=== PATIENT | male | born 1955 | race Caucasian/White ===

== ENCOUNTER 2017-05-21 10:09 | Inpatient (IN) | payer MEDICARE ==
[~2017-05-21] VITALS: Ht 170.2 cm; Wt 68.0 kg
[~2017-05-21 10:09] MED LIST: ASPI-110 PO; ATOR40TA16 PO; CARV6.252 PO; DILA4TAB2 PO; LANTUS2P SQ; LIPI40TA PO; METF500T PO; MORP1TAB26 PO; NITR1SUB3 SL; PLAV75TA29 PO; VENL75TA PO
[2017-05-21 10:59] LABS: AUTOMATED NEUTROPHIL # 5.4 TH/MM3 (1.8-7.7); BASOPHIL # 0.1 TH/MM3 (0-0.2); BASOPHIL % 1.2 % (0.0-2.0); EOSINOPHIL # 0.4 TH/MM3 (0-0.4); HEMO FLAGS DIFF FINAL; LYMPH % 34.9 % (9.0-44.0); LYMPHOCYTE # 3.4 TH/MM3 (1.0-4.8); MEAN CELL VOLUME 86.2 FL (80.0-100.0); MEAN CORPUSCULAR HEMOGLOBIN 28.4 PG (27.0-34.0); MONO % 5.2 % (0.0-8.0); NEUT % 54.7 % (16.0-70.0); PLATELET COUNT 245 TH/MM3 (150-450); RED BLOOD COUNT 5.34 MIL/MM3 (4.50-5.90); RED CELL DISTRIBUTION WIDTH 16.2 % (11.6-17.2); WHITE BLOOD COUNT 9.8 TH/MM3 (4.0-11.0)
[2017-05-21 11:06] LABS: INTERNATIONAL NORMALIZED RATIO 0.9 RATIO; PROTHROMBIN TIME - PATIENT 10.4 SEC (9.8-11.6)
[2017-05-21] MEDS ORDERED: SODIUM CHLORID 0.9% 500 ML IV PRN (11:15)
[2017-05-21] MEDS ORDERED: POVIDONE IODINE 5% (ANTISEPSIS KIT) 4 APPLICATIONS EACH NARE PRN (11:15)
[2017-05-21] MEDS ORDERED: LACTATED RINGER'S 1000 ML IV PRN (11:15)
[2017-05-21] MEDS ORDERED: INSULIN HUMAN REGULAR 1,000 UNITS/10 ML VIAL SQ PRN (11:15)
[2017-05-21] MEDS ORDERED: CHLORHEXIDINE GLUCONATE 2 % 1 PACK (2 CLOTHS) TOPICAL PRN (11:15)
[2017-05-21] MEDS ORDERED: METOPROLOL TARTRATE 25 MG TAB PO PRN (11:15)
[2017-05-21] MEDS ORDERED: MIDAZOLAM HCL 2 MG/2 ML VIAL ONE (11:16)
[2017-05-21] MEDS ORDERED: FAMOTIDINE 20 MG/2 ML VIAL ONE (11:17)
[2017-05-21] MEDS ORDERED: HYDROmorphone HCL PF 2 MG/ML VIAL ONE (11:17)
[2017-05-21 11:20] LABS: BICARBONATE 27.6 MEQ/L (21.0-32.0); POTASSIUM 4.2 MEQ/L (3.5-5.1)
--- NOTE | 2017-05-21 11:21 | RADRPT ---
EXAM DATE/TIME: 05/21/2017 10:38 [place] COMPARISON: No previous studies available for comparison. INDICATIONS : Evaluate for pneumonia, pneumothorax, or communicable disease. Pre op for right leg surgery. MEDICAL HISTORY : Hypertension. Diabetes mellitus type II. Myocardial infarction. SURGICAL HISTORY : Pain stimulator. Stent. ENCOUNTER: Initial ACUITY: 1 day PAIN SCORE: 0/10 LOCATION: Bilateral chest FINDINGS: A single view of the chest demonstrates the lungs to be symmetrically aerated without evidence of mas s, infiltrate or effusion. The cardiomediastinal contours are unremarkable. Osseous structures are intact. Stimulation electrodes project over the lower cervical region. CONCLUSION: The lungs are clear. Bryce Harris MD on May 21, 2017 at 11:19 Board Certified Radiologist. This report was verified electronically.
[2017-05-21] MEDS ORDERED: ceFAZolin 2 GM PREMIX 50 ML ONE (11:25)
--- NOTE | 2017-05-21 11:29 | PD.VS.PN ---
Pre-operative Note Pre-operative diagnosis: Open R BKA Planned procedure: R BKA revision Interval History: Pt has been feeling well since I saw him in clinic Fri. No F/C. Ready for surgery Labs: Laboratory Results Test 05/21/17 10:50 Anion Gap 5 MEQ/L (5-15) Blood Urea Nitrogen 16 MG/DL (7-18) Creatinine 0.60 MG/DL (0.60-1.30) Random Glucose 182 MG/DL (74-106) Calcium Level 8.8 MG/DL (8.5-10.1) Sodium Level 134 MEQ/L (136-145) Potassium Level 4.2 MEQ/L (3.5-5.1) Chloride Level 101 MEQ/L (98-107) Carbon Dioxide Level 27.6 MEQ/L (21.0-32.0) Hematocrit 46.0 % (39.0-51.0) Hemoglobin 15.2 GM/DL (13.0-17.0) Mean Corpuscular Hemoglobin 28.4 PG (27.0-34.0) Mean Corpuscular Hemoglobin Concent 33.0 % (32.0-36.0) Mean Corpuscular Volume 86.2 FL (80.0-100.0) Mean Platelet Volume 7.0 FL (7.0-11.0) Platelet Count 245 TH/MM3 (150-450) Prothromb Time International Ratio 0.9 RATIO Red Blood Count 5.34 MIL/MM3 (4.50-5.90) Red Cell Distribution Width 16.2 % (11.6-17.2) White Blood Count 9.8 TH/MM3 (4.0-11.0) Blood: T&S Imaging: Last Impressions Chest X-Ray 05/21/17 0000 Signed Impressions: Service Date/Time: Sunday, May 21, 2017 10:38 - CONCLUSION: The lungs are clear. Bryce Harris MD Orders: NPO Ancef 2g IV OCTOR Post-operative destination: PACU Operative site marked: Yes Consent: Informed consent has been obtained from Radames Fox. I have explained the procedure in detail and discussed the risks, benefits, and potential complications. All questions have been answered. Patient contact information: [place] () [phone] Darshan Lopez MD May 21, 2017 11:29
[2017-05-21] MEDS ORDERED: KETAMINE HCL 500 MG/5 ML VIAL ONE (11:41)
[2017-05-21] MEDS ORDERED: ONDANSETRON HCL 4 MG/2 ML VIAL IV PUSH ONE (12:00)
[2017-05-21] MEDS ORDERED: PROPOFOL 200 MG/20 ML AMP IV ONE (12:00)
[2017-05-21] MEDS ORDERED: PHENYLEPH/NS 1000 MCG/10 ML SYR IV ONE (12:00)
--- NOTE | 2017-05-21 12:25 | HHI.PR ---
Immediate Post Op Note Procedure Date: May 21, 2017 Pre Op Diagnosis: open R BKA Post Op Diagnosis: open R BKA Surgeon: Darshan Lopez Asset Protection Agent(s): Heydi Montoya Procedure: R BKA revision Findings: no infection Complications: none Specimen(s) removed: none for pathology Estimated blood loss: 50mL Anesthesia: General Drains: None Fluids: 850mL IVF Patient to: PACU Patient Condition: Good Date/Time of Procedure: SEE SURGICAL CARE RECORD Darshan Lopez MD May 21, 2017 12:25
[2017-05-21] MEDS ORDERED: DEXTROSE 50% IN WATER 50 ML VIAL(D50) IV PRN (12:30)
[2017-05-21] MEDS ORDERED: NITROGLYCERIN 0.4 MG SL 25 TABS/BTL SL PRN (12:30)
[2017-05-21] MEDS ORDERED: GLUCAGON 1 MG/ML VIAL OTHER PRN (12:30)
[2017-05-21] MEDS ORDERED: DO NOT ADM ANY ANTICOAGULANT DRUGS PRN (12:39)
[2017-05-21] MEDS ORDERED: *morphine SULFATE 8 MG/ML PERIprocedure ONLY ONE ×3 (12:51→13:34)
[2017-05-21] MEDS: ENOXAPARIN SODIUM 30 MG/0.3 ML SYRINGE SQ SCH (13:00)
[2017-05-21] MEDS ORDERED: *LABETALOL HCL 100 MG/20 ML VIAL PERIprocedural Use ONLY ONE (13:02)
[2017-05-21] MEDS ORDERED: *HYDROmorphone PF 1 MG VIAL PERIprocedural Use ONLY ONE (14:13)
--- NOTE | 2017-05-21 14:29 | EKG ---
Date Performed: 05/21/2017 Time Performed: 10:49:12 PTAGE: 61 years EKG: Sinus rhythm NORMAL ECG Compared to prior tracing no significant change PREVIOUS TRACING : 03/31/2007 21.20 DOCTOR: Praveen Montoya Interpretating Date/Time 05/21/2017 14:28:52
[2017-05-21 16:00] VITALS: BP 136/78; PULSE 91; RESP 17; TEMP 98.2; O2SAT 96
[2017-05-21] MEDS: INSULIN ASPART SUPPLEMENTAL SCALE SQ SCH ×2 (16:00→21:00)
[2017-05-21] MEDS: HYDROmorphone HCL 2 MG TAB PO PRN ×2 (16:01→21:05)
[2017-05-21] MEDS ORDERED: NICOTINE 21 MG/24 HR PATCH T-DERMAL ONE (18:30)
[2017-05-21] MEDS: metFORMIN HCL 500 MG TAB PO SCH (19:11)
[2017-05-21] MEDS: MORPHINE SULFATE 4 MG/ML INJ IV PRN ×2 (19:12→21:19)
[2017-05-21] MEDS ORDERED: traZODone HCL 50 MG TAB PO PRN (19:45)
[2017-05-21 20:26] VITALS: O2SAT 96
[2017-05-21] MEDS: ATORVASTATIN 40 MG TAB PO SCH (21:06)
[2017-05-21] MEDS: CARVEDILOL 6.25 MG TAB PO SCH (21:06)
[2017-05-21] MEDS: MORPHINE SULFATE 60 MG CONTROLLED RELEASE TAB PO SCH (22:51)
[2017-05-21 23:00] VITALS: PULSE 97
[2017-05-22] VITALS (7 sets, daily range): BP systolic 83–164; BP diastolic 52–78; PULSE 81–90; RESP 18–20; TEMP 96.8–98.8; O2SAT 94–97
[2017-05-22] MEDS: HYDROmorphone HCL 2 MG TAB PO PRN ×3 (03:04→14:27)
[2017-05-22] MEDS: MORPHINE SULFATE 4 MG/ML INJ IV PRN ×3 (05:46→18:55)
[2017-05-22] MEDS: INSULIN ASPART SUPPLEMENTAL SCALE SQ SCH ×4 (07:00→21:00)
[2017-05-22 07:11] LABS: HEMATOCRIT 43.2 % (39.0-51.0); MEAN CELL VOLUME 87.3 FL (80.0-100.0); MEAN CORPUSCULAR HEMOGLOBIN 28.8 PG (27.0-34.0); PLATELET COUNT 211 TH/MM3 (150-450); RED BLOOD COUNT 4.95 MIL/MM3 (4.50-5.90); RED CELL DISTRIBUTION WIDTH 15.8 % (11.6-17.2); REVIEW FLAG FINAL; WHITE BLOOD COUNT 9.2 TH/MM3 (4.0-11.0)
[2017-05-22 07:34] LABS: BICARBONATE 31.7 MEQ/L (21.0-32.0); POTASSIUM 3.5 MEQ/L (3.5-5.1)
[2017-05-22] MEDS: MORPHINE SULFATE 60 MG CONTROLLED RELEASE TAB PO SCH ×2 (08:43→21:00)
[2017-05-22] MEDS: CLOPIDOGREL 75 MG TAB PO SCH (08:43)
[2017-05-22] MEDS: ASPIRIN EC 81 MG TABEC PO SCH (08:44)
[2017-05-22] MEDS: CARVEDILOL 6.25 MG TAB PO SCH ×2 (08:44→20:59)
[2017-05-22] MEDS: VENLAFAXINE HCL 75 MG TAB PO SCH (08:44)
[2017-05-22] MEDS: metFORMIN HCL 500 MG TAB PO SCH ×2 (08:44→18:55)
--- NOTE | 2017-05-22 08:55 | MP ---
cc: VARINDER LOPEZ MD DATE OF SURGERY 05/21/2017 PREOPERATIVE DIAGNOSIS Open right below-knee amputation POSTOPERATIVE DIAGNOSIS Open right below-knee amputation PROCEDURE Right below-knee amputation revision SURGEON Varinder Lopez MD CORPORATE TECHNICAL RECRUITER SURGEON Heydi Montoya ANESTHESIA General MEDICATIONS Mr. Fox is a 61-year gentleman who has a right below-knee amputation. He had some trauma to the wound and presented to my clinic with an exposed bone. He is taken to the operating room for amputation revision. He and his understand full well this may ultimately result in an above-knee amputation. DESCRIPTION OF THE PROCEDURE Informed consent was obtained from the patient. The patient was taken to the operating room, placed supine on the operating table and an appropriate time-out was taken to ensure the patient's identity, operative site and planned procedure. Two grams of Ancef was initiated prior to the skin incision and will be discontinued after a single preoperative dose. Everyone in the room agreed with the time-out and we proceeded. His right leg was prepped and draped and his previous incision was opened with a 10 blade, carried down through the subcutaneous tissue with electrocautery. The bone, the periosteum and the tissue around the bone was then resected and the bone was freed up for several centimeters and then the distal aspect of the bone was resected with an oscillating saw. The anterior portion of the bone was beveled. The wound was then irrigated and closed with 2-0 Polysorb and 2-0 nylon vertical mattress sutures. The sponge and needle counts were correct at the end of the case. I was present and scrubbed and performed the entire procedure. MD BRANDON Boateng/BROCK /4:14 PM /8:37 AM
--- NOTE | 2017-05-22 11:40 | PD.VS.PN ---
Subjective POD #: 1 Procedure(s): R BKA revision Subjective/Hospital Course Afebrile 61/M Pt in bed alert in NAD Reported a painful night Pain controlled this am Dressing to R BKA I/C/D Objective Vitals/I&O Date Time Temp Pulse Resp B/P (MAP) Pulse Ox O2 Delivery O2 Flow Rate FiO2 05/22/17 09:49 96 05/22/17 08:00 98.5 84 18 114/60 (78) 96 05/22/17 04:00 98.8 84 18 83/52 (62) 97 05/22/17 00:00 98.6 88 20 164/78 (106) 95 05/21/17 23:00 97 05/21/17 20:26 96 21 05/21/17 16:00 98.2 91 17 136/78 (97) 96 05/21/17 15:15 98.3 92 13 142/79 (100) 96 Nasal Cannula 4 05/21/17 15:00 88 13 142/79 (100) 94 Nasal Cannula 4 05/21/17 14:45 95 20 152/79 (103) 95 05/21/17 14:30 85 11 155/76 (102) 92 05/21/17 14:15 90 11 151/76 (101) 93 05/21/17 14:00 85 10 161/72 (101) 94 05/21/17 13:45 84 13 157/69 (98) 95 05/21/17 13:30 85 18 180/83 (115) 99 Nasal Cannula 4 05/21/17 13:15 89 12 188/100 (129) 99 Nasal Cannula 4 05/21/17 13:00 90 14 195/103 (133) 99 Nasal Cannula 4 05/21/17 12:43 97.9 97 16 201/108 (139) 93 Nasal Cannula 4 05/22/17 05/22/17 05/22/17 07:00 15:00 23:00 Output Total 350 ml Balance -350 ml Exam: GENERAL: Afebrile 61/M A&OX3,NAD SKIN: Warm and dry/ dressing to R BKA intact, clean and dry CARDIOVASCULAR: RRR,+S1,S2 RESPIRATORY: BS CTA/No accessory muscle use. MUSCULOSKELETAL: No cyanosis, or edema. Laboratory Laboratory Tests Test 05/22/17 06:22 White Blood Count 9.2 Red Blood Count 4.95 Hemoglobin 14.3 Hematocrit 43.2 Mean Corpuscular Volume 87.3 Mean Corpuscular Hemoglobin 28.8 Mean Corpuscular Hemoglobin Concent 33.0 Red Cell Distribution Width 15.8 Platelet Count 211 Mean Platelet Volume 7.0 Blood Urea Nitrogen 7 Creatinine 0.57 Random Glucose 207 Calcium Level 8.6 Sodium Level 137 Potassium Level 3.5 Chloride Level 99 Carbon Dioxide Level 31.7 Anion Gap 6 Estimat Glomerular Filtration Rate 145 Assessment and Plan Assessment: (1) PAD (peripheral artery disease) Status: Chronic (2) BKA stump complication Status: Acute (3) Hx of right BKA Plan Afebrile 61/M with a hx of R BKA (1year ago) who bumped his R BKA stump 6W ago on a trailer hitch Pt with skin erosion and bone exposure. Pt s/p POD 1- revision R BKA Plan Continue pain management Continue PT D/C planning Melissa CADET [facility]/[place] [phone] Discharge Planning Tomorrow AM (home) Melissa Flor May 22, 2017 11:40
[2017-05-22] MEDS: ENOXAPARIN SODIUM 30 MG/0.3 ML SYRINGE SQ SCH (14:26)
[2017-05-22] MEDS: ATORVASTATIN 40 MG TAB PO SCH (20:59)
[2017-05-23] VITALS: BP 116/58; PULSE 84; RESP 18; TEMP 98.6; O2SAT 90
[2017-05-23] MEDS: MORPHINE SULFATE 4 MG/ML INJ IV PRN ×2 (00:01→09:54)
[2017-05-23] MEDS: INSULIN ASPART SUPPLEMENTAL SCALE SQ SCH (05:47)
[2017-05-23] MEDS: HYDROmorphone HCL 2 MG TAB PO PRN (05:51)
[2017-05-23] MEDS: MORPHINE SULFATE 60 MG CONTROLLED RELEASE TAB PO SCH (07:46)
[2017-05-23] MEDS: metFORMIN HCL 500 MG TAB PO SCH (07:47)
[2017-05-23] MEDS: ASPIRIN EC 81 MG TABEC PO SCH (07:48)
[2017-05-23] MEDS: CLOPIDOGREL 75 MG TAB PO SCH (07:50)
[2017-05-23] MEDS: VENLAFAXINE HCL 75 MG TAB PO SCH (07:51)
[2017-05-23 07:58] VITALS: PULSE 77
[2017-05-23] MEDS: CARVEDILOL 6.25 MG TAB PO SCH (07:58)
--- NOTE | 2017-05-23 08:37 | PD.VS.PN ---
Subjective POD #: 2 Procedure(s): R BKA revision Subjective/Hospital Course Afebrile 61/M Pt in bed alert in NAD Pain controlled this am Dressing to R BKA I/C/D Changed dressing this am Objective Vitals/I&O Date Time Temp Pulse Resp B/P (MAP) Pulse Ox O2 Delivery O2 Flow Rate FiO2 05/23/17 00:00 98.6 84 18 116/58 (77) 90 05/22/17 20:00 88 05/22/17 17:54 96.8 90 20 119/72 (88) 94 05/22/17 12:00 97.9 81 18 101/56 (71) 94 05/22/17 09:49 96 05/23/17 05/23/17 05/23/17 07:00 15:00 23:00 Output Total 450 ml Balance -450 ml Exam: GENERAL: A&OX3,NAD,GCS15 SKIN: Warm and dry/ R BKA intact with suture closure. No R/D/S present CARDIOVASCULAR: RRR, +S1,S2 RESPIRATORY: BS CTA Assessment and Plan Assessment: (1) PAD (peripheral artery disease) Status: Chronic (2) BKA stump complication Status: Acute (3) Hx of right BKA Plan Afebrile 61/M with a hx of R BKA (1year ago) who bumped his R BKA stump 6W ago on a trailer hitch Pt with skin erosion and bone exposure. Pt s/p POD 2- revision R BKA Plan Dressing changed Pt to be d/c today Arranged OP F/U Melissa CADET [facility]/[place] [phone] Discharge Planning Today (home) Melissa Flor May 23, 2017 08:37
--- NOTE | 2017-05-23 08:48 | PD.VS.DC ---
Discharge Summary Admission Date: May 21, 2017 at 10:09 Discharge Date: May 23, 2017 Admission Diagnosis: (1) PAD (peripheral artery disease) (2) BKA stump complication (3) Hx of right BKA Discharge Diagnosis: (1) PAD (peripheral artery disease) ICD Codes: I73.9 - Peripheral vascular disease, unspecified Status: Chronic (2) BKA stump complication ICD Codes: T87.9 - Unspecified complications of amputation stump Status: Acute (3) Hx of right BKA ICD Codes: Z89.511 - Acquired absence of right leg below knee Brief History from admission Afebrile 61/M with a hx of R BKA (1year ago) who bumped his R BKA stump 6W ago on a trailer hitch Pt with skin erosion and bone exposure. Procedure(s): R BKA revision Significant Findings GENERAL: A&OX3,NAD,GCS15 SKIN: Warm and dry/ R BKA intact with suture closure. No R/D/S present CARDIOVASCULAR: RRR, +S1,S2 RESPIRATORY: BS CTA Laboratory Tests Test 05/21/17 10:50 05/22/17 06:22 Random Glucose 182 MG/DL (74-106) 207 MG/DL (74-106) Sodium Level 134 MEQ/L (136-145) Creatinine 0.57 MG/DL (0.60-1.30) Hospital Course: Afebrile 61/M with a hx of R BKA (1year ago) who bumped his R BKA stump 6W ago on a trailer hitch Pt with skin erosion and bone exposure. S/P R BKA revision w/o complications Pt will f/U in our OPC in 2W Allergies Coded Allergies Type Severity Reaction Last Updated Verified acetaminophen Allergy Mild 05/21/17 No oxycodone Allergy Mild 05/21/17 No Recent Impressions Chest X-Ray 05/21/17 0000 Signed Impressions: Service Date/Time: Sunday, May 21, 2017 10:38 - CONCLUSION: The lungs are clear. Bryce Harris MD 9/6/17 05/21/17 05/22/17 05/22/17 05/23/17 05/23/17 06:00 18:00 06:00 18:00 06:00 18:00 Intake Total 1260 ml 480 ml Output Total 1275 ml 350 ml 400 ml 450 ml Balance -15 ml -350 ml 80 ml -450 ml Intake Oral 410 ml 480 ml Other 850 ml Output Urine Total 225 ml 350 ml 400 ml 450 ml Estimated Blood Loss 50 ml Other 1000 ml # Bowel Movements 0 Laboratory Tests Test 05/21/17 10:50 05/22/17 06:22 White Blood Count 9.8 TH/MM3 9.2 TH/MM3 Red Blood Count 5.34 MIL/MM3 4.95 MIL/MM3 Hemoglobin 15.2 GM/DL 14.3 GM/DL Hematocrit 46.0 % 43.2 % Mean Corpuscular Volume 86.2 FL 87.3 FL Mean Corpuscular Hemoglobin 28.4 PG 28.8 PG Mean Corpuscular Hemoglobin Concent 33.0 % 33.0 % Red Cell Distribution Width 16.2 % 15.8 % Platelet Count 245 TH/MM3 211 TH/MM3 Mean Platelet Volume 7.0 FL 7.0 FL Neutrophils (%) (Auto) 54.7 % Lymphocytes (%) (Auto) 34.9 % Monocytes (%) (Auto) 5.2 % Eosinophils (%) (Auto) 4.0 % Basophils (%) (Auto) 1.2 % Neutrophils # (Auto) 5.4 TH/MM3 Lymphocytes # (Auto) 3.4 TH/MM3 Monocytes # (Auto) 0.5 TH/MM3 Eosinophils # (Auto) 0.4 TH/MM3 Basophils # (Auto) 0.1 TH/MM3 CBC Comment DIFF FINAL Differential Comment Prothrombin Time 10.4 SEC Prothromb Time International Ratio 0.9 RATIO Blood Urea Nitrogen 16 MG/DL 7 MG/DL Creatinine 0.60 MG/DL 0.57 MG/DL Random Glucose 182 MG/DL 207 MG/DL Calcium Level 8.8 MG/DL 8.6 MG/DL Sodium Level 134 MEQ/L 137 MEQ/L Potassium Level 4.2 MEQ/L 3.5 MEQ/L Chloride Level 101 MEQ/L 99 MEQ/L Carbon Dioxide Level 27.6 MEQ/L 31.7 MEQ/L Anion Gap 5 MEQ/L 6 MEQ/L Estimat Glomerular Filtration Rate 137 ML/MIN 145 ML/MIN Orders Procedure Category Date Status Time Complete Blood Count LAB 05/21/17 Complete With Diff 10:15 Prothrombin Time / LAB 05/21/17 Complete Inr (Pt) 10:15 Basic Metabolic Panel LAB 05/21/17 Complete (Bmp) 10:15 Electrocardiogram CAV 05/21/17 Resulted Chest, Single Ap RADDIAG 05/21/17 Resulted Lactated Ringer's MED 05/21/17 In Process 1000 Ml Inj (Lr 1000 M 11:15 Sodium Chlorid 0.9% MED 05/21/17 In Process 500 Ml Inj (Ns 500 M 11:15 Metoprolol Tartrate MED 05/21/17 In Process (Lopressor) 11:15 Povidone Iod 5% MED 05/21/17 In Process Antisepsis Kit 11:15 Chlorhexidine 2% MED 05/21/17 In Process Cloth (Chlorhexidine 11:15 Insulin Human Regular MED 05/21/17 In Process Inj (Novolin R Inj 11:15 Midazolam Inj (Versed MED 05/21/17 Complete Inj) 11:16 Hydromorphone Pf Inj MED 05/21/17 Complete (Dilaudid Pf Inj) 11:17 Famotidine Inj MED 05/21/17 Complete (Pepcid Inj) 11:17 Cefazolin 2 Gm Premix MED 05/21/17 Complete (Ancef 2 Gm Premix 11:25 Ketamine Inj (Ketalar MED 05/21/17 Complete Inj) 11:41 Admit To Inpatient ADMITTING 05/21/17 Transmitted Code Status CODE 05/21/17 Transmitted 12:25 Vital Signs (Adult) JACQUI 05/21/17 In Process 12:25 Supervisor Lamp Shades / JACQUI 05/21/17 In Process Telemetry 12:25 Activity Oob Ad Fauzia JACQUI 05/21/17 In Process 12:25 Notify Parameters JACQUI 05/21/17 In Process 12:25 Diet Heart Healthy DIET 05/21/17 Transmitted Lunch Basic Metabolic Panel LAB 05/22/17 Complete (Bmp) 06:00 Cbc No Diff, Includes LAB 05/22/17 Complete Plts 06:00 Case Management CONS 05/21/17 Transmitted Consult Consult Pt Eval & PT 05/21/17 Logged Treat 12:25 Oxycodone (Roxicodone) MED 05/21/17 In Process 12:30 Hydromorphone MED 05/21/17 In Process (Dilaudid) 12:30 Morphine Inj MED 05/21/17 In Process (Morphine Inj) 12:30 Enoxaparin Inj MED 05/21/17 In Process (Lovenox Inj) 13:00 Inpatient ADMITTING 05/21/17 Transmitted Certification Aspirin Ec (Ecotrin MED 05/22/17 In Process Ec) 09:00 Atorvastatin (Lipitor) MED 05/21/17 In Process 21:00 Carvedilol (Coreg) MED 05/21/17 In Process 21:00 Clopidogrel (Plavix) MED 05/22/17 In Process 09:00 Metformin (Glucophage) MED 05/21/17 In Process 18:00 Morphine Sr (Oramorph MED 05/21/17 In Process Sr) 21:00 Nitroglycerin Sl MED 05/21/17 In Process (Nitrostat Sl) 12:30 Venlafaxine (Effexor) MED 05/22/17 In Process 09:00 Blood Glucose Goal JACQUI 05/21/17 In Process (Criteria) 12:27 Hypoglycemia 70 Mg/Dl JACQUI 05/21/17 In Process Or < 12:[address]: Other JACQUI 05/21/17 In Process 12:27 Dextrose 50% In Анна MED 05/21/17 In Process (Vial) Inj (D50w (Vi 12:30 Glucagon Inj MED 05/21/17 In Process (Glucagon Inj) 12:30 Insulin Aspart MED 05/21/17 In Process Supplemtl Scale 16:00 *Morphine Inj MED 05/21/17 Complete (*Morphine Inj 12:51 *Labetalol Inj MED 05/21/17 Complete (*Trandate Inj 13:02 *Morphine Inj MED 05/21/17 Complete (*Morphine Inj 13:12 *Morphine Inj MED 05/21/17 Complete (*Morphine Inj 13:34 Misc Nursing MED 05/21/17 Complete Information 12:39 *Hydromorphone Pf Inj MED 05/21/17 Complete (*Dilaudid Pf Inj 14:13 Fentanyl Inj MED 05/21/17 Complete (Fentanyl Inj) 15:02 Anticoagulant Alert JACQUI 05/21/17 In Process ^ Sling JACQUI 05/21/17 In Process Resp Oxygen Rick C RSP 05/21/17 Complete Titrat 1-4 L Family Notification [facility] 05/21/17 In Process 15:49 Am Admit Pre Op Care [facility] 05/21/17 Complete Class Iv Pacu Ea 30 [facility] 05/21/17 Complete MIN General/Pacu [facility] 05/21/17 Complete Post Anesthesia Oxygen [facility] 05/21/17 Complete Pacu Med Holding [facility] 05/21/17 Complete Hourly Nicotine 21 Mg MED 05/21/17 Complete Patch.24 Hr (Habitrol 18:30 Trazodone (Desyrel) MED 05/21/17 In Process 19:45 Sling Cradle Arm ORTHO 05/22/17 Complete (Hub Use Only)Inp Phy CONS 05/22/17 Transmitted Cons/Ref Attending Discharge DISCHARGE 05/23/17 Transmitted Order Vital Signs Date Time Temp Pulse Resp B/P (MAP) Pulse Ox O2 Delivery O2 Flow Rate FiO2 05/23/17 00:00 98.6 84 18 116/58 (77) 90 05/22/17 20:00 88 05/22/17 17:54 96.8 90 20 119/72 (88) 94 05/22/17 12:00 97.9 81 18 101/56 (71) 94 05/22/17 09:49 96 05/22/17 08:00 98.5 84 18 114/60 (78) 96 05/22/17 04:00 98.8 84 18 83/52 (62) 97 05/22/17 00:00 98.6 88 20 164/78 (106) 95 05/21/17 23:00 97 05/21/17 20:26 96 21 05/21/17 16:00 98.2 91 17 136/78 (97) 96 05/21/17 15:15 98.3 92 13 142/79 (100) 96 Nasal Cannula 4 05/21/17 15:00 88 13 142/79 (100) 94 Nasal Cannula 4 05/21/17 14:45 95 20 152/79 (103) 95 05/21/17 14:30 85 11 155/76 (102) 92 05/21/17 14:15 90 11 151/76 (101) 93 05/21/17 14:00 85 10 161/72 (101) 94 05/21/17 13:45 84 13 157/69 (98) 95 05/21/17 13:30 85 18 180/83 (115) 99 Nasal Cannula 4 05/21/17 13:15 89 12 188/100 (129) 99 Nasal Cannula 4 05/21/17 13:00 90 14 195/103 (133) 99 Nasal Cannula 4 05/21/17 12:43 97.9 97 16 201/108 (139) 93 Nasal Cannula 4 Discharge Condition: Good Discharge Disposition: Discharge Home Discharge Instructions: Apply 4x4 then cling to R BKA site while drainage is present then juan wrap Call the office to report any new onset redness, drainage or swelling F/U in our out patient clinic in 2W Call the office with any questions or concerns Melissa CADET [facility]/[place] [phone] Any questions or concerns: Call [facility] Heart and Vascular Surgery at [facility] [phone] Melissa Flor May 23, 2017 08:48
[2017-07-08] MEDS ORDERED: SULF1TAB23 PO (10:02)
[2017-07-08] MEDS ORDERED: FAMO20TA2 PO (10:02)
== END 2017-05-23 11:22 | disposition home or self-care (01) | DRG 476 ==
LOC: HSDI 10:09 → N07B 15:34
PROVIDERS: ADMIT Surgery; ATTEND Surgery
PROC: 0Y6H0Z3 Detachment at Right Lower Leg, Low, Open Approach (ICD-10-PCS; principal; 2017-05-21 11:31)
DX: T87.81 Dehiscence of amputation stump (principal); I10 Essential (primary) hypertension; E11.9 Type 2 diabetes mellitus without complications; I73.9 Peripheral vascular disease, unspecified; Y83.5 Amputation of limb(s) as the cause of abnormal reaction of the patient, or of later complication, without mention of misadventure at the time of the procedure; I25.10 Atherosclerotic heart disease of native coronary artery without angina pectoris; Z95.5 Presence of coronary angioplasty implant and graft; E78.5 Hyperlipidemia, unspecified; F17.210 Nicotine dependence, cigarettes, uncomplicated; I25.2 Old myocardial infarction
CPT/HCPCS: 71010; 80048; 82948; 85025; 85027; 85610; 93005; J0690; J1170; J1650; J1815; J2250; J2270; J2370; J2405; J3010; J7120